=== PATIENT | female | born 1995 | race Caucasian/White ===

== ENCOUNTER 2019-06-02 13:37 | Emergency (ER) | payer OTHER, MEDICAID ==
[~2019-06-02] VITALS: Ht 152.4 cm; Wt 68.5 kg
[2019-06-02] MEDS ORDERED: CELEXA 20 MG TA20 MG PO (13:56)
[2019-06-02] MEDS ORDERED: HYDROXYZINE HCL50 MG PO (13:58)
[2019-06-02 14:09] LABS: URINE BILIRUBIN NEGATIVE (Negative); URINE BLOOD 3+ (Negative); URINE CLARITY TURBID; URINE COLOR RED; URINE GLUCOSE-RANDOM TRACE (Negative); URINE KETONES TRACE (Negative); URINE LEUKOCYTES-REFLEX TRACE (Negative); URINE PROTEIN 3+ (Negative); URINE SPECIFIC GRAVITY >= 1.030 (1.005-1.030)
[2019-06-02 14:10] LABS: URINE NITRITE-REFLEX POSITIVE (Negative)
[2019-06-02 14:17] LABS: BACTERIA-REFLEX >30 Many /HPF (None Seen); CASTS None Seen /LPF (None Seen); CRYSTALS None Seen /LPF (None Seen); SQUAMOUS 0-3 Few /LPF (0-3); URINE RBC 0-2 Rare /HPF (0-2); URINE WBC-REFLEX >25 Many /HPF (0-5)
[2019-06-02 14:17] LABS: ABSOLUTE BASOPHILS 0.1 thou/uL (0.0-0.2); ABSOLUTE EOSINOPHILS 0.4 thou/uL (0.0-0.7); ABSOLUTE MONOCYTES 0.3 thou/uL (0.0-1.2); ABSOLUTE NEUTROPHILS 3.2 thou/uL (1.6-8.1); BASOPHILS 1.2 %; EOSINOPHILS 6.6 %; HEMATOCRIT 43.2 % (37.0-47.0); HEMOGLOBIN 14.5 gm/dL (12.0-15.0); LYMPHOCYTES 33.3 %; MCH 29.6 pg (26.0-34.0); MCHC 33.6 g/dL (28.0-37.0); MCV 88.1 fL (80.0-100.0); MONOCYTES 4.4 %; MPV 7.6 fl. (7.2-11.1); NUCLEATED RBCS 0 /100WBC; PLATELET COUNT* 393 thou/uL (150-400); POLYS 54.5 %; RDW-CV 14.2 % (10.5-14.5); WBC 5.9 thou/uL (4.0-11.0)
[2019-06-02 14:26] LABS: CALCIUM 8.8 mg/dL (8.5-10.1); CREATININE 0.9 mg/dL (0.6-1.3); POTASSIUM 3.3 mmol/L (3.5-5.1)
[2019-06-02 14:31] LABS: ALBUMIN 3.8 g/dL (3.4-5.0); TOTAL BILIRUBIN 0.3 mg/dL (<0.1-1.0); TOTAL PROTEIN 7.2 g/dL (6.4-8.2)
[2019-06-02] MEDS ORDERED: MEDROXYPROGESTE10 MG PO (14:31)
[2019-06-02] MEDS ORDERED: MACROBID 100 M100 M2 PO (14:31)
[2019-06-02] MEDS ORDERED: NORCO 5-325 TA1 EAC1 PO ×2 (14:31→15:11)
[2019-06-02 15:25] VITALS: BP 115/80
== END 2019-06-02 15:26 | disposition home or self-care (01) ==
LOC: M.ERS 13:37
PROVIDERS: Nurse Practitioner Family
DX: N94.6 Dysmenorrhea, unspecified (principal); N39.0 Urinary tract infection, site not specified; J45.909 Unspecified asthma, uncomplicated

== ENCOUNTER 2019-07-02 15:01 | Emergency (ER) | payer OTHER, MEDICAID ==
[~2019-07-02] VITALS: Ht 152.4 cm; Wt 65.8 kg
[~2019-07-02 15:01] MED LIST: CELEXA 20 MG TA20 MG PO; HYDROXYZINE HCL50 MG PO; MACROBID 100 M100 M2 PO; MEDROXYPROGESTE10 MG PO; NORCO 5-325 TA1 EAC1 PO
[2019-07-02 16:19] LABS: ABSOLUTE BASOPHILS 0.1 thou/uL (0.0-0.2); ABSOLUTE EOSINOPHILS 0.2 thou/uL (0.0-0.7); ABSOLUTE LYMPHOCYTES 2.9 thou/uL (0.8-5.3); ABSOLUTE MONOCYTES 0.4 thou/uL (0.0-1.2); ABSOLUTE NEUTROPHILS 5.6 thou/uL (1.6-8.1); BASOPHILS 0.7 %; HEMATOCRIT 46.7 % (37.0-47.0); HEMOGLOBIN 15.7 gm/dL (12.0-15.0); LYMPHOCYTES 31.8 %; MCH 29.6 pg (26.0-34.0); MCHC 33.6 g/dL (28.0-37.0); MCV 87.9 fL (80.0-100.0); MONOCYTES 3.9 %; MPV 7.6 fl. (7.2-11.1); NUCLEATED RBCS 0 /100WBC; PLATELET COUNT* 290 thou/uL (150-400); POLYS 61.6 %; RBC 5.32 mil/uL (4.20-5.00); RDW-CV 13.3 % (10.5-14.5); WBC 9.1 thou/uL (4.0-11.0)
[2019-07-02 16:38] LABS: CALCIUM 8.5 mg/dL (8.5-10.1); CREATININE 0.8 mg/dL (0.6-1.3); POTASSIUM 4.1 mmol/L (3.5-5.1)
[2019-07-02 16:42] LABS: ALBUMIN 3.6 g/dL (3.4-5.0); TOTAL BILIRUBIN 0.3 mg/dL (<0.1-1.0); TOTAL PROTEIN 6.2 g/dL (6.4-8.2)
[2019-07-02] MEDS ORDERED: NAPROSYN500 MG PO (17:55)
[2019-07-02] MEDS ORDERED: NORCO 5-325 TA1 EAC1 PO (17:55)
[2019-07-02 18:00] VITALS: BP 138/60
== END 2019-07-02 18:02 | disposition home or self-care (01) ==
LOC: M.ERS 15:01
PROVIDERS: Nurse Practitioner Family
DX: N94.6 Dysmenorrhea, unspecified (principal); J45.909 Unspecified asthma, uncomplicated; Z88.6 Allergy status to analgesic agent; Z88.8 Allergy status to other drugs, medicaments and biological substances; Z98.51 Tubal ligation status

== ENCOUNTER 2019-07-17 11:05 | Emergency (ER) | payer OTHER, MEDICAID ==
[~2019-07-17] VITALS: Ht 152.4 cm; Wt 62.6 kg
[~2019-07-17 11:05] MED LIST changes: +NAPROSYN500 MG PO
[2019-07-17 11:49] LABS: INFLUENZA A ANTIGEN Negative (Negative); INFLUENZA B ANTIGEN Negative (Negative)
[2019-07-17 12:12] LABS: URINE BLOOD NEGATIVE (Negative); URINE CLARITY CLEAR; URINE COLOR YELLOW; URINE GLUCOSE-RANDOM NEGATIVE (Negative); URINE KETONES 1+ (Negative); URINE LEUKOCYTES-REFLEX TRACE (Negative); URINE NITRITE-REFLEX NEGATIVE (Negative); URINE PROTEIN TRACE (Negative); URINE SPECIFIC GRAVITY 1.025 (1.005-1.030)
[2019-07-17 12:15] LABS: ICTOTEST (BILI CONFIRMATORY) Negative (Negative); URINE BILIRUBIN 1+ (Negative)
[2019-07-17 12:21] LABS: SQUAMOUS >10 Many /LPF (0-3)
[2019-07-17 12:22] LABS: BACTERIA-REFLEX >30 Many /HPF (None Seen); CRYSTALS None Seen /LPF (None Seen); HYALINE CASTS 0-3 Few /LPF (None Seen); MUCUS >6 Heavy strn/LPF (None Seen); URINE RBC 0-2 Rare /HPF (0-2); URINE WBC-REFLEX 0-5 Rare /HPF (0-5)
[2019-07-17] MEDS ORDERED: ONDANSETRON HCL4 M2 PO (13:12)
[2019-07-17] MEDS ORDERED: AUGMENTIN 875-1 EACH PO (13:12)
[2019-07-17] MEDS ORDERED: VENTOLIN HFA 1818 GM INH (13:15)
[2019-07-17 13:36] VITALS: BP 128/68
--- NOTE | 2019-07-19 14:33 | EKG ---
[place] [address] ELECTROCARDIOGRAM REPORT Name: LUIZ NDIAYE Room: [facility]#: [id number] Admission: 07/17/19 Attend Phys: Discharge: 07/17/19 Date of : [birth year] Report #: [id number] THIS REPORT FOR: //name// [facility] ED Test Date: 2019-07-17 Test Time: 12:22:35 Pat Name: LUIZ NDIAYE Department: Room: Gender: F [employer]phalt [employer] Operator: MISHA : 1995 Requested By: Selin Harden Order Number: [id number] MD: Benedict Pandya Measurements Intervals [place] Rate: 116 P: 78 GA: 104 QRS: 51 QRSD: 72 T: -37 QT: 397 QTc: 552 Interpretive Statements Sinus tachycardia Borderline T abnormalities, diffuse leads Prolonged QT interval No previous ECG available for comparison Electronically Signed On 07-19-2019 14:33:18 [employer] by Benedict Pandya [email or web address] <ELECTRONICALLY SIGNED> By: Benedict Pandya MD, [facility] 07/19/19 1433 1222 1222 Benedict Pandya MD, FACC /EPI
== END 2019-07-17 13:36 | disposition home or self-care (01) ==
LOC: M.ERS 11:05
PROVIDERS: Family Medicine; Nurse Practitioner Family
DX: H66.91 Otitis media, unspecified, right ear (principal); R05 Cough; R55 Syncope and collapse; J45.909 Unspecified asthma, uncomplicated; Z88.8 Allergy status to other drugs, medicaments and biological substances

== ENCOUNTER 2019-09-05 10:04 | Emergency (ER) | payer OTHER ==
[~2019-09-05] VITALS: Ht 152.4 cm; Wt 61.2 kg
[~2019-09-05 10:04] MED LIST changes: +AUGMENTIN 875-1 EACH PO; +ONDANSETRON HCL4 M2 PO; +VENTOLIN HFA 1818 GM INH
[2019-09-05 10:28] LABS: INFLUENZA A ANTIGEN Positive (Negative); INFLUENZA B ANTIGEN Negative (Negative)
[2019-09-05] MEDS ORDERED: TAMIFLU75 MG PO (10:56)
[2019-09-05] MEDS ORDERED: ONDANSETRON HCL4 M2 PO (10:56)
[2019-09-05 11:02] VITALS: BP 109/71
== END 2019-09-05 11:04 | disposition home or self-care (01) ==
LOC: M.ERS 10:04
PROVIDERS: Nurse Practitioner Family
DX: J10.1 Influenza due to other identified influenza virus with other respiratory manifestations (principal); J45.909 Unspecified asthma, uncomplicated; Z98.51 Tubal ligation status; Z88.6 Allergy status to analgesic agent; Z88.8 Allergy status to other drugs, medicaments and biological substances

== ENCOUNTER 2020-03-19 15:47 | Emergency (ER) | payer OTHER ==
[~2020-03-19] VITALS: Ht 152.4 cm; Wt 59.0 kg
[~2020-03-19 15:47] MED LIST changes: +TAMIFLU75 MG PO
[2020-03-19] MEDS ORDERED: HYDROXYZINE HCL25 M2 (16:02)
[2020-03-19 16:15] LABS: URINE BILIRUBIN NEGATIVE (Negative); URINE BLOOD TRACE (Negative); URINE CLARITY SL CLOUDY; URINE COLOR YELLOW; URINE GLUCOSE-RANDOM NEGATIVE (Negative); URINE KETONES NEGATIVE (Negative); URINE LEUKOCYTES-REFLEX NEGATIVE (Negative); URINE NITRITE-REFLEX NEGATIVE (Negative); URINE PROTEIN NEGATIVE (Negative)
[2020-03-19 16:54] LABS: ABSOLUTE BASOPHILS 0.1 thou/uL (0.0-0.2); ABSOLUTE EOSINOPHILS 0.2 thou/uL (0.0-0.7); ABSOLUTE LYMPHOCYTES 3.1 thou/uL (0.8-5.3); ABSOLUTE MONOCYTES 0.4 thou/uL (0.0-1.2); ABSOLUTE NEUTROPHILS 5.5 thou/uL (1.6-8.1); BASOPHILS 0.6 %; EOSINOPHILS 2.1 %; HEMATOCRIT 45.4 % (37.0-47.0); HEMOGLOBIN 15.6 gm/dL (12.0-15.0); LYMPHOCYTES 33.2 %; MCHC 34.4 g/dL (28.0-37.0); MCV 90.3 fL (80.0-100.0); MONOCYTES 4.6 %; NUCLEATED RBCS 0 /100WBC; PLATELET COUNT* 378 thou/uL (150-400); POLYS 59.5 %; RBC 5.03 mil/uL (4.20-5.00); RDW-CV 14.7 % (10.5-14.5); WBC 9.2 thou/uL (4.0-11.0)
[2020-03-19 17:01] LABS: CALCIUM 9.8 mg/dL (8.5-10.1); CREATININE 0.9 mg/dL (0.6-1.3); POTASSIUM 3.9 mmol/L (3.5-5.1)
[2020-03-19 17:05] LABS: ALBUMIN 4.7 g/dL (3.4-5.0); TOTAL BILIRUBIN 0.7 mg/dL (<0.1-1.0); TOTAL PROTEIN 8.3 g/dL (6.4-8.2)
[2020-03-19] MEDS ORDERED: NORCO 5-325 TA1 EAC2 PO (17:05)
[2020-03-19] MEDS ORDERED: NAPROSYN500 MG PO (17:05)
[2020-03-19 17:16] VITALS: BP 130/62
== END 2020-03-19 17:16 | disposition home or self-care (01) ==
LOC: M.ERS 15:47
PROVIDERS: Physician Assistant
DX: R10.2 Pelvic and perineal pain (principal); R10.32 Left lower quadrant pain; R10.84 Generalized abdominal pain; N80.9 Endometriosis, unspecified; Z88.6 Allergy status to analgesic agent; Z88.8 Allergy status to other drugs, medicaments and biological substances; Z98.51 Tubal ligation status; Z90.710 Acquired absence of both cervix and uterus

== ENCOUNTER 2021-02-10 12:24 | Emergency (ER) | payer OTHER ==
[~2021-02-10] VITALS: Ht 152.4 cm; Wt 61.2 kg
[~2021-02-10 12:24] MED LIST changes: +HYDROXYZINE HCL25 M2; +NORCO 5-325 TA1 EAC2 PO
[2021-02-10] MEDS ORDERED: NAPROSYN500 MG PO (15:08)
[2021-02-10] MEDS ORDERED: PREDNISONE 20 M20 MG PO (15:08)
[2021-02-10] MEDS ORDERED: FLEXERIL PO (15:08)
[2021-02-10] MEDS ORDERED: HYDROXYZINE HCL50 MG PO (15:09)
[2021-02-10 15:21] VITALS: BP 122/76
== END 2021-02-10 15:22 | disposition home or self-care (01) ==
LOC: M.ERS 12:24
DX: S16.1XXA Strain of muscle, fascia and tendon at neck level, initial encounter (principal); J45.909 Unspecified asthma, uncomplicated; Z88.8 Allergy status to other drugs, medicaments and biological substances; Z88.6 Allergy status to analgesic agent; Z98.51 Tubal ligation status; Z90.710 Acquired absence of both cervix and uterus; X58.XXXA Exposure to other specified factors, initial encounter; Y93.89 Activity, other specified; Y92.89 Other specified places as the place of occurrence of the external cause; Y99.8 Other external cause status

== ENCOUNTER 2021-03-04 17:53 | Emergency (ER) | payer OTHER, MEDICAID ==
[~2021-03-04] VITALS: Ht 152.4 cm; Wt 61.2 kg
[~2021-03-04 17:53] MED LIST changes: +FLEXERIL PO; +PREDNISONE 20 M20 MG PO
[2021-03-04] MEDS ORDERED: TESSALON PERLE100 MG PO (21:16)
[2021-03-04 21:28] VITALS: BP 132/64
== END 2021-03-04 21:29 | disposition home or self-care (01) ==
LOC: M.ERS 17:53
DX: J06.9 Acute upper respiratory infection, unspecified (principal); Z20.822 Contact with and (suspected) exposure to COVID-19; J45.909 Unspecified asthma, uncomplicated; Z98.51 Tubal ligation status; Z90.710 Acquired absence of both cervix and uterus; Z88.6 Allergy status to analgesic agent; Z88.1 Allergy status to other antibiotic agents